=== PATIENT | male | born 1995 | race African-American/Black ===

== ENCOUNTER 2021-12-28 03:09 | Emergency (ER) | payer MEDICAID ==
[~2021-12-28] VITALS: Ht 172.7 cm; Wt 70.0 kg
[2021-12-28 05:27] VITALS: BP 122/79
== END 2021-12-28 05:28 | disposition home or self-care (01) ==
LOC: ER 03:09
DX: B04 Monkeypox (principal)
CPT/HCPCS: 99281

== ENCOUNTER 2022-02-24 13:24 | Emergency (ER) | payer MEDICAID ==
[~2022-02-24] VITALS: Ht 177.8 cm; Wt 87.0 kg
[2022-02-24 14:00] VITALS: BP 120/60
[2022-02-24] MEDS ORDERED: TETANUS, DIPHTHERIA, PERTUSSIS VAC/PF 0.5ML (>10YR OLD) IM ONE (14:00)
[2022-02-24] MEDS ORDERED: BACITRACIN ZINC OINT UDPKT TOP ONE (14:00)
[2022-02-24] MEDS ORDERED: HYDROCODONE/ACETAMINOPHEN 5/325MG TABLET PO ONE (14:00)
[2022-02-24] MEDS ORDERED: LIDOCAINE HCL/EPINEPHRINE 1%-EPI 1:100,000 20 ML VIAL INFIL ONE (14:00)
[2022-02-24] MEDS ORDERED: IBUPROFEN 600MG TABLET PO ONE (14:00)
[2022-02-24] MEDS ORDERED: IBUPROFEN 600MG TABLET PO NR (14:30)
[2022-02-24] MEDS ORDERED: LIDOCAINE HCL/EPINEPHRINE 1%-EPI 1:100,000 50 ML VIAL INFIL NR (14:30)
[2022-02-24] MEDS ORDERED: IBUP-2028 MT (16:31)
== END 2022-02-24 17:14 | disposition home or self-care (01) ==
LOC: ER 13:42
DX: S01.112A Laceration without foreign body of left eyelid and periocular area, initial encounter (principal); S02.2XXA Fracture of nasal bones, initial encounter for closed fracture; Y08.89XA Assault by other specified means, initial encounter; Y93.89 Activity, other specified; Y92.9 Unspecified place or not applicable
CPT/HCPCS: 12011; 70450; 70486; 73030; 73502; 90471; 90715; 99284; Z7610; J3490